=== PATIENT | male | born 1930 | race Caucasian/White ===

== ENCOUNTER 2018-12-29 11:32 | Emergency (ER) | payer MEDICARE, BC ==
[~2018-12-29] VITALS: Ht 167.6 cm; Wt 66.7 kg
--- NOTE | 2018-12-29 11:44 | NUR ---
Dr. Davila at the bedside for MSE.
--- NOTE | 2018-12-29 13:00 | NUR ---
Patient discharged to home in stable conditon. Written and verbal after care instructions given. Patient verbalizes understanding of instructions.
[2018-12-30] MEDS ORDERED: ZOLP5TAB8 PO (08:49)
[2018-12-30] MEDS ORDERED: NIFE60TA69 PO (08:49)
[2018-12-30] MEDS ORDERED: HYDR25TA4 PO (08:49)
[2018-12-30] MEDS ORDERED: MONT10TA22 PO (08:49)
[2018-12-30] MEDS ORDERED: TAMS-3 PO (08:56)
[2018-12-30] MEDS ORDERED: FOLI1TAB16 PO (08:56)
[2018-12-30] MEDS ORDERED: OMEP20TA20 PO (08:56)
[2018-12-30] MEDS ORDERED: SERT25TA PO (08:56)
[2018-12-30] MEDS ORDERED: MELA5TAB PO (08:56)
[2018-12-30] MEDS ORDERED: METH2.5T PO (08:56)
[2018-12-30] MEDS ORDERED: ROSU5TAB PO (08:56)
[2018-12-30] MEDS ORDERED: MULT1TAB73 PO (08:56)
[2018-12-30] MEDS ORDERED: PRED1TAB PO (09:13)
== END 2018-12-29 13:02 | disposition home or self-care (01) ==
LOC: ER 11:32
DX: L03.113 Cellulitis of right upper limb (principal); Z88.8 Allergy status to other drugs, medicaments and biological substances
CPT/HCPCS: 73130; A4663

== ENCOUNTER 2018-12-30 08:26 | Emergency (ER) | payer MEDICARE, BC ==
[~2018-12-30] VITALS: Ht 167.6 cm; Wt 66.7 kg
[2018-12-30] MEDS ORDERED: NIFE60TA69 PO (08:49)
[2018-12-30] MEDS ORDERED: MONT10TA22 PO (08:49)
[2018-12-30] MEDS ORDERED: HYDR25TA4 PO (08:49)
[2018-12-30] MEDS ORDERED: ZOLP5TAB8 PO (08:49)
[2018-12-30] MEDS ORDERED: VANCOMYCIN IV 200 ML ONE (08:54)
[2018-12-30] MEDS ORDERED: METH2.5T PO (08:56)
[2018-12-30] MEDS ORDERED: FOLI1TAB16 PO (08:56)
[2018-12-30] MEDS ORDERED: MULT1TAB73 PO (08:56)
[2018-12-30] MEDS ORDERED: SERT25TA PO (08:56)
[2018-12-30] MEDS ORDERED: ROSU5TAB PO (08:56)
[2018-12-30] MEDS ORDERED: OMEP20TA20 PO (08:56)
[2018-12-30] MEDS ORDERED: TAMS-3 PO (08:56)
[2018-12-30] MEDS ORDERED: MELA5TAB PO (08:56)
[2018-12-30] MEDS ORDERED: VANCOMYCIN IV 1,000 MG in IV DEXTROSE 5% 250 ML IV ONE (09:00)
[2018-12-30] MEDS ORDERED: PRED1TAB PO (09:13)
[2018-12-30 10:15] VITALS: BP 122/60
[2018-12-30] MEDS ORDERED: CEphaleXIN 500 MG CAPSULE ONE (10:28)
--- NOTE | 2018-12-30 10:28 | NUR ---
IV removed. Catheter intact and site benign. Pressure and 4x4 gauze applied to site. No bleeding noted.
--- NOTE | 2018-12-30 10:29 | NUR ---
Patient discharged to home in stable conditon. Written and verbal after care instructions given. Patient verbalizes understanding of instructions.
[2018-12-30] MEDS ORDERED: CEphaleXIN 500 MG CAPSULE PO ONE (10:30)
== END 2018-12-30 10:29 | disposition home or self-care (01) ==
LOC: ER 08:26
DX: L03.113 Cellulitis of right upper limb (principal); J45.909 Unspecified asthma, uncomplicated; E78.00 Pure hypercholesterolemia, unspecified; Z88.8 Allergy status to other drugs, medicaments and biological substances; Z79.899 Other long term (current) drug therapy
CPT/HCPCS: 96365; 99283; J3370; A4663